=== PATIENT | female | born 1975 | race African-American/Black ===

== ENCOUNTER 2024-07-30 07:15 | Inpatient (IN) ==
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
[2024-07-30 07:40] LABS: iSTAT Hemoglobin 13.3 g/dl (12.0-16.0); iSTAT Ionized Calcium 1.15 mmol/l (1.12-1.32); iSTAT Potassium 3.4 mmol/L (3.3-5.0)
[2024-07-30 07:43] LABS: Basophils # (auto) 0.03 K/uL (0.00-0.20); Basophils % (auto) 0.4 %; Eosinophils # (auto) 0.02 K/uL (0.00-0.50); Eosinophils % (auto) 0.2 %; Hemoglobin 11.9 g/dl (12.0-16.0); Immature Granulocytes # (auto) 0.02 K/uL (0.01-0.20); Immature Granulocytes % (auto) 0.2 %; Lymphocytes # (auto) 1.94 K/uL (1.20-3.40); Lymphocytes % (auto) 23.2 %; Mean Corpuscular Hemoglobin 25.5 pg (25.0-34.0); Mean Corpuscular Hgb Conc 31.3 g/dL (32.0-36.0); Mean Corpuscular Volume 81.5 fL (80.0-100.0); Mean Platelet Volume 10.7 fL (9.4-12.4); Monocytes # (auto) 0.42 K/uL (0.11-0.59); Neutrophils # (auto) 5.92 K/uL (1.40-6.50); Platelet Count 362 K/uL (130-400); RDW Coefficient of Variation 14.4 % (11.5-14.5); RDW Standard Deviation 42.4 fL (36.4-46.3); Red Blood Count 4.66 M/uL (4.20-5.40); White Blood Count 8.35 K/ul (4.8-10.8)
[2024-07-30] MEDS: OPTIRAY 320 100ml IV ONE (07:56)
[2024-07-30 07:59] LABS: Albumin Globulin Ratio 1.2 (0.9-2); Albumin Level 4.2 gm/dl (3.4-5.0); BUN Creatinine Ratio 14.3 (10-20); Bilirubin,Total 0.3 mg/dl (0.2-1.0); Calcium 8.8 mg/dl (8.6-10.3); Creatinine Clr Calc Pharmacy 95.2 ml/min; Globulin 3.4 gm/dl (2.5-4.0); Potassium 3.5 mmol/L (3.5-5.1); Total Protein 7.6 gm/dl (6.0-8.3)
[2024-07-30 08:15] LABS: INR 0.9 (0.9-1.1); Partial Thromboplastin Ratio 0.9; Partial Thromboplastin Time 23 Seconds (21-31); Prothrombin Time 9.8 Seconds (9.0-12.0)
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
[2024-07-30 08:28] LABS: Appearance Urine Clear (Clear); Bacteria Urine Automated 1+ (None Seen); Bilirubin Urine Negative (Negative); Blood Urine Negative (Negative); Cast Urine Automated 0-2 /lpf (0-2); Color Urine Yellow; Epithelial Cell Urine Auto 0-2 /hpf (0-2); Glucose Urine UA Negative (Negative); Ketones Urine Negative (Negative); Leukocyte Esterase Urine Negative (Negative); Nitrite Urine Negative (Negative); Protein Urine 1+ (Negative); RBC Urine Automated 0-2 /hpf (0-2); Specific Gravity Urine 1.016 (1.000-1.030); Urobilinogen Urine Negative (Negative); WBC Urine Automated 0-5 /hpf (0-5)
[2024-07-30] MEDS: LIDOCAINE/EPINEPH/TETRACAINE 1 EA SYR EXT STA (08:28)
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
[2024-07-30] MEDS: DIPHTHER/TETAN/PERTUS Vaccine (Tdap, Adol/Adult) 0.5mL IM ONE (08:31)
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
[2024-07-30 08:56] LABS: Pregnancy Test, Serum Negative (Negative)
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
[2024-07-30] MEDS: SODIUM CHLORIDE 0.9% 1,000 ML IV ONE (09:53)
[2024-07-30] MEDS: lisinopril 10 MG TAB PO STA (09:53)
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
[2024-07-30] MEDS: ONDANSETRON INJ 2 MG/ML 2 ML VIAL IV STA (11:30)
[2024-07-30] MEDS: MoRPHine SULFATE 4 MG/ML 1 ML CARP\\VIAL IV STA (11:30)
[2024-07-30 12:36] LABS: Hematocrit (blood only) 35.7 % (37.0-47.0); Hemoglobin 11.2 g/dl (12.0-16.0)
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
--- NOTE | 2024-07-30 13:57 | Electrocardiogram Report ---
Test Reason : Blood Pressure : */* mmHG Vent. Rate : 117 BPM Atrial Rate : 117 BPM P-R Int : 148 ms QRS Dur : 90 ms QT Int : 336 ms P-R-T Axes : 62 40 42 degrees QTcB Int : 468 ms Sinus tachycardia Otherwise normal ECG No previous ECGs available Confirmed by Flaco Freitas ([id number]) on 07/30/2024 1:57:09 PM Referred By: Confirmed By: Flaco Freitas
--- NOTE | 2024-07-30 15:34 | XCELERA ---
[id number]
[2024-07-30] MEDS ORDERED: ACETAMINOPHEN 325 MG TAB PO PRN (16:24)
[2024-07-30 17:41] LABS: Hematocrit (blood only) 33.2 % (37.0-47.0); Hemoglobin 10.6 g/dl (12.0-16.0)
[2024-07-30] MEDS: ENOXAPARIN INJ 40 MG/0.4 ML SYR SQ SCH (20:23)
[2024-07-30] MEDS: MoRPHine SULFATE 2 MG/ML CARP IV PRN (20:24)
[2024-07-30] MEDS: ACETAMINOPHEN 325 MG TAB PO PRN (22:43)
[2024-07-31 09:05] LABS: Basophils # (auto) 0.03 K/uL (0.00-0.20); Basophils % (auto) 0.5 %; Eosinophils # (auto) 0.06 K/uL (0.00-0.50); Eosinophils % (auto) 0.9 %; Hematocrit (blood only) 33.8 % (37.0-47.0); Hemoglobin 10.7 g/dl (12.0-16.0); Immature Granulocytes # (auto) 0.02 K/uL (0.01-0.20); Immature Granulocytes % (auto) 0.3 %; Lymphocytes # (auto) 2.04 K/uL (1.20-3.40); Lymphocytes % (auto) 30.7 %; Mean Corpuscular Hemoglobin 26.4 pg (25.0-34.0); Mean Corpuscular Hgb Conc 31.7 g/dL (32.0-36.0); Mean Corpuscular Volume 83.3 fL (80.0-100.0); Mean Platelet Volume 10.8 fL (9.4-12.4); Monocytes # (auto) 0.46 K/uL (0.11-0.59); Monocytes % (auto) 6.9 %; Neutrophils # (auto) 4.04 K/uL (1.40-6.50); Neutrophils % (auto) 60.7 %; Platelet Count 339 K/uL (130-400); RDW Coefficient of Variation 14.6 % (11.5-14.5); RDW Standard Deviation 44.8 fL (36.4-46.3); Red Blood Count 4.06 M/uL (4.20-5.40); White Blood Count 6.65 K/ul (4.8-10.8)
[2024-07-31] MEDS: ASPIRIN 81 MG ECTAB PO SCH (09:09)
[2024-07-31] MEDS: LOSARTAN POTASSIUM 25 MG TAB PO SCH (09:09)
[2024-07-31 09:25] LABS: Albumin Level 3.5 gm/dl (3.4-5.0); Bilirubin,Total 0.3 mg/dl (0.2-1.0); Calcium 8.3 mg/dl (8.6-10.3); Potassium 3.6 mmol/L (3.5-5.1)
[2024-07-31 09:31] LABS: Creatinine Clr Calc Pharmacy 96.2 ml/min; Total Protein 6.4 gm/dl (6.0-8.3)
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
[2024-07-31 12:08] VITALS: BP 146/76; PULSE 83; RESP 19; TEMP 98.6; O2SAT 96
== END 2024-08-01 05:01 | disposition home or self-care (01) | DRG 305 ==
LOC: SUATTDRO → ED 07:15 → 2E 15:09
DX: Z23 Encounter for immunization; Z86.73 Personal history of transient ischemic attack (TIA), and cerebral infarction without residual deficits; D50.9 Iron deficiency anemia, unspecified; R82.89 Other abnormal findings on cytological and histological examination of urine; R79.89 Other specified abnormal findings of blood chemistry; S00.93XA Contusion of unspecified part of head, initial encounter; V63.5XXA Driver of heavy transport vehicle injured in collision with car, pick-up truck or van in traffic accident, initial encounter; Z68.41 Body mass index [BMI] 40.0-44.9, adult; R00.0 Tachycardia, unspecified; S39.012A Strain of muscle, fascia and tendon of lower back, initial encounter; Y92.410 Unspecified street and highway as the place of occurrence of the external cause; E66.01 Morbid (severe) obesity due to excess calories; S41.112A Laceration without foreign body of left upper arm, initial encounter; Z79.899 Other long term (current) drug therapy; S66.911A Strain of unspecified muscle, fascia and tendon at wrist and hand level, right hand, initial encounter; I10 Essential (primary) hypertension